=== PATIENT | male | born 1985 | race Two or more races ===

== ENCOUNTER 2016-11-02 16:43 | Emergency (ER) | payer MEDICAID ==
[~2016-11-02] VITALS: Ht 180.3 cm; Wt 81.6 kg
[~2016-11-02 16:43] MED LIST: DIAZ10TA OR; DIAZ5TAB3 PO; OXYB5TAB62 PO; PERCOT GT; PERCOT PO
[2016-11-02 17:09] VITALS: BP 108/77
[2016-11-02 21:35] LABS: Basophils # (auto) 0.1 uL; Basophils % (auto) 1.1 % (0.0-2.0); Eosinophils # (auto) 0.2 uL; Eosinophils % (auto) 1.4 % (0.0-7.0); Hematocrit 47.1 % (41.0-53.0); Hemoglobin 16.1 g/dL (13.5-17.5); Lymphocytes # (auto) 3.6 uL; Lymphocytes % (auto) 32.8 % (10.0-50.0); Mean Corpuscular Hemoglobin 31.8 pg (28.0-32.0); Mean Corpuscular Hgb Conc. 34.2 g/dL (32.0-36.0); Mean Platelet Volume 8.1 fL (6.9-10.8); Monocytes % (auto) 8.8 % (0.0-12.0); Neutrophils % (auto) 55.9 % (37.0-80.0); Platelet Count (auto) 492 10^3/uL (140-450); Red Cell Distribution Width 13.2 % (11.8-14.3); White Blood Cell 10.8 10^3/uL (4.4-10.8)
[2016-11-02 21:47] LABS: Urine Bilirubin Negative (Negative); Urine Blood Negative /uL (Negative); Urine Color Yellow (Yellow); Urine Glucose Normal (Normal); Urine Ketone TRACE (Negative); Urine Mucus FEW (None Seen); Urine Nitrite POSITIVE (Negative); Urine RBC 1 /hpf (0 - 3); Urine Squamous Epithelial Cell FEW /hpf (<5); Urine Urobilinogen Normal (Negative); Urine pH 6.5 (5.0-8.0)
[2016-11-02 21:51] LABS: Albumin 4.5 g/dL (3.4-5.0); BUN/Creatinine Ratio 14.3; Bilirubin, Total 0.5 mg/dL (0.2-1.0); Calcium 9.5 mg/dL (8.5-10.1); Potassium 3.4 mmol/L (3.5-5.1); Total Protein 9.4 g/dL (6.4-8.2)
[2016-11-02] MEDS ORDERED: cefTRIAXone SOD 1,000 MG VL IM ONE (22:00)
[2016-11-02] MEDS ORDERED: ONDANSETRON HCL 4 MG/2 ML VIAL IM ONE (22:15)
[2016-11-02] MEDS ORDERED: HYDROmorphone HCL 2 MG/ML VL IM ONE (22:15)
== END 2016-11-02 22:17 | disposition home or self-care (01) ==
LOC: ER 16:53
DX: N39.0 Urinary tract infection, site not specified (principal); G89.4 Chronic pain syndrome; K21.9 Gastro-esophageal reflux disease without esophagitis; Z87.442 Personal history of urinary calculi; Z79.899 Other long term (current) drug therapy; Z88.8 Allergy status to other drugs, medicaments and biological substances; Z87.440 Personal history of urinary (tract) infections
CPT/HCPCS: 36415; 74176; 80053; 81001; 85025; 96372; 99285; J0696; J1170; J2405

== ENCOUNTER 2017-02-24 14:38 | Emergency (ER) | payer MEDICAID ==
[~2017-02-24] VITALS: Ht 167.6 cm; Wt 81.6 kg
[2017-02-24 15:06] VITALS: BP 104/74
[2017-02-24] MEDS ORDERED: HYDROmorphone HCL 2 MG/ML VL IM ONE (15:45)
[2017-02-24] MEDS ORDERED: PROMETHAZINE HCL 25 MG/ML 1ML IM ONE (15:45)
[2017-02-24] MEDS ORDERED: ACETAMINOPHEN 500 MG TAB PO ONE (17:15)
[2017-02-24] MEDS ORDERED: cefTRIAXone SOD 1,000 MG VL IM ONE (17:15)
== END 2017-02-24 17:41 | disposition home or self-care (01) ==
LOC: EDBD 14:38 → ER 14:38
DX: G89.29 Other chronic pain (principal); M54.5 Low back pain; K59.00 Constipation, unspecified; K21.9 Gastro-esophageal reflux disease without esophagitis; R30.0 Dysuria; Z87.440 Personal history of urinary (tract) infections; Z87.442 Personal history of urinary calculi; Z88.8 Allergy status to other drugs, medicaments and biological substances
CPT/HCPCS: 72100; 96372; 99284; J0696; J1170; J2550

== ENCOUNTER 2017-10-26 11:47 | Inpatient (IN) | payer MEDICAID ==
[~2017-10-26] VITALS: Ht 177.8 cm; Wt 63.0 kg
[~2017-10-26 11:47] MED LIST changes: +OXYB5TAB24 PO; -OXYB5TAB62 PO
[2017-10-26 13:33] LABS: Eosinophils # (auto) 0 uL; Eosinophils % (auto) 0.2 % (0.0-7.0); Hemoglobin 14.8 g/dL (13.5-17.5); Lymphocytes # (auto) 1.3 uL; Monocytes # (auto) 0.4 uL; Red Cell Distribution Width 13.4 % (11.8-14.3); White Blood Cell 5.4 10^3/uL (4.4-10.8)
[2017-10-26 13:36] LABS: Basophils # (auto) 0.1 uL; Hematocrit 44.5 % (41.0-53.0); Lymphocytes % (auto) 24.9 % (10.0-50.0); Mean Corpuscular Hemoglobin 31.1 pg (28.0-32.0); Mean Corpuscular Hgb Conc. 33.3 g/dL (32.0-36.0); Mean Corpuscular Volume 93.4 fL (80.0-100.0); Monocytes % (auto) 7.6 % (0.0-12.0); Neutrophils # (auto) 3.6 uL; Neutrophils % (auto) 66.3 % (37.0-80.0); Nucleated Red Blood Cells % 0.1 %; Red Blood Cells 4.77 10^6/uL (4.5-5.90)
[2017-10-26 13:56] LABS: Albumin 3.6 g/dL (3.4-5.0); BUN/Creatinine Ratio 4.2; Bilirubin, Total 0.5 mg/dL (0.2-1.0); Calcium 9.6 mg/dL (8.5-10.1); Potassium 3.6 mmol/L (3.5-5.1); Total Protein 9.8 g/dL (6.4-8.2)
[2017-10-26 13:59] LABS: Platelet Count (auto) 542 10^3/uL (140-450)
[2017-10-26] MEDS ORDERED: HYDROmorphone HCL 2 MG/ML VL IM ONE (14:45)
[2017-10-26] MEDS ORDERED: ONDANSETRON HCL 4 MG/2 ML VIAL IM ONE (14:45)
[2017-10-26] MEDS ORDERED: MORPHINE SULF INJ 2 MG/ML SYRINGE 1ML IV PRN (19:00)
[2017-10-26] MEDS ORDERED: LORazepam 0.5 MG TAB PO PRN (19:00)
[2017-10-26] MEDS ORDERED: NITROGLYCERIN 0.4 MG SL TAB SL PRN (19:00)
[2017-10-26] MEDS ORDERED: cefTRIAXone 1GM/10ml IVPUSH 10 ML IV ONE (19:00)
[2017-10-26 19:01] LABS: Urine Amorphous Crystal FEW /hpf (None Seen); Urine Bacteria NONE SEEN /hpf (None Seen); Urine Blood Negative /uL (Negative); Urine Hyaline Cast FEW /lpf (0 - 2); Urine Mucus FEW (None Seen); Urine Specific Gravity 1.019 (1.001-1.035); Urine WBC 3 /hpf (0 - 3)
[2017-10-26] MEDS: SODIUM CHLORIDE 0.9% 1,000 ML IV SCH (20:38)
[2017-10-26] MEDS: MORPHINE SULF INJ 2 MG/ML SYRINGE 1ML IV PRN (21:19)
[2017-10-26] MEDS: DIAZEPAM 5 MG TAB PO SCH (21:20)
[2017-10-26] MEDS: OXYBUTYNIN CHL 5 MG TAB PO SCH (21:21)
[2017-10-26] MEDS: TEMAZEPAM 15 MG CAP PO PRN (21:27)
[2017-10-26] MEDS: HYDROcodone-ACET 5/325MG TAB PO PRN (21:42)
[2017-10-26] MEDS: ACETAMINOPHEN 500 MG TAB PO PRN (21:42)
[2017-10-26 22:00] VITALS: BP 105/69
[2017-10-26] MEDS ORDERED: DIAZEPAM 5 MG TAB PO SCH (22:00)
[2017-10-26 23:34] LABS: INR 0.99 (0.9-1.15); Prothrombin Time 10.6 sec (9.27-12.13)
[2017-10-27] MEDS: MORPHINE SULF INJ 2 MG/ML SYRINGE 1ML IV PRN ×6 (01:17→22:35)
[2017-10-27] MEDS: HYDROcodone-ACET 5/325MG TAB PO PRN ×2 (03:42→16:29)
[2017-10-27] MEDS: ACETAMINOPHEN 500 MG TAB PO PRN (03:43)
[2017-10-27] MEDS: SODIUM CHLORIDE 0.9% 1,000 ML IV SCH ×2 (04:56→12:00)
[2017-10-27 05:00] VITALS: BP 113/67
[2017-10-27 06:32] LABS: Potassium 3.3 mmol/L (3.5-5.1)
[2017-10-27 06:40] LABS: Albumin 3.4 g/dL (3.4-5.0); BUN/Creatinine Ratio 6.7; Calcium 9.4 mg/dL (8.5-10.1)
[2017-10-27 06:42] LABS: Bilirubin, Total 0.5 mg/dL (0.2-1.0); Total Protein 8.8 g/dL (6.4-8.2)
[2017-10-27 09:00] VITALS: BP 109/62
[2017-10-27] MEDS: ONDANSETRON HCL 4 MG/2 ML VIAL IV PRN ×3 (09:53→18:14)
[2017-10-27] MEDS: cefTRIAXone 1GM/10ml IVPUSH 10 ML IV SCH (09:53)
[2017-10-27] MEDS ORDERED: PANTOPRAZOLE 40 MG TAB PO SCH (10:00)
[2017-10-27] MEDS: OXYBUTYNIN CHL 5 MG TAB PO SCH ×2 (10:15→21:35)
[2017-10-27] MEDS: DIAZEPAM 5 MG TAB PO SCH ×2 (10:16→21:36)
[2017-10-27 13:00] VITALS: BP 98/56
[2017-10-27] MEDS: D5W/SOD CHL 0.45%/KCL 20MEQ 1,000 ML IV SCH (15:30)
[2017-10-27 17:00] VITALS: BP 102/68
[2017-10-27 22:00] VITALS: BP 101/55
[2017-10-28] MEDS: D5W/SOD CHL 0.45%/KCL 20MEQ 1,000 ML IV SCH ×3 (00:54→21:30)
[2017-10-28] MEDS: MORPHINE SULF INJ 2 MG/ML SYRINGE 1ML IV PRN ×4 (02:35→13:57)
[2017-10-28] MEDS: HYDROcodone-ACET 5/325MG TAB PO PRN ×2 (04:42→15:40)
[2017-10-28] MEDS: ACETAMINOPHEN 500 MG TAB PO PRN (04:44)
[2017-10-28 05:00] VITALS: BP 107/67
[2017-10-28 09:00] VITALS: BP 96/68
[2017-10-28] MEDS: DIAZEPAM 5 MG TAB PO SCH ×2 (10:23→22:14)
[2017-10-28] MEDS: cefTRIAXone 1GM/10ml IVPUSH 10 ML IV SCH (10:23)
[2017-10-28] MEDS: PANTOPRAZOLE 40 MG TAB PO SCH ×2 (10:23→22:14)
[2017-10-28] MEDS: OXYBUTYNIN CHL 5 MG TAB PO SCH ×2 (10:26→22:14)
[2017-10-28 13:00] VITALS: BP 94/54
[2017-10-28] MEDS ORDERED: GASTROGRAFIN 120 ML SOL ONE (16:39)
[2017-10-28 17:00] VITALS: BP 100/67
[2017-10-28] MEDS: MORPHINE SULFATE 4 MG/ML SYR/VIAL IV PRN ×2 (18:38→23:56)
[2017-10-28 22:00] VITALS: BP 101/71
[2017-10-28] MEDS: TEMAZEPAM 15 MG CAP PO PRN (22:14)
[2017-10-29] MEDS: HYDROcodone-ACET 5/325MG TAB PO PRN ×3 (02:49→17:01)
[2017-10-29] MEDS: MORPHINE SULFATE 4 MG/ML SYR/VIAL IV PRN ×5 (04:43→22:30)
[2017-10-29 04:55] VITALS: BP 118/75
[2017-10-29] MEDS: D5W/SOD CHL 0.45%/KCL 20MEQ 1,000 ML IV SCH (07:30)
[2017-10-29 08:42] VITALS: BP 102/66
[2017-10-29] MEDS: PANTOPRAZOLE 40 MG TAB PO SCH ×2 (09:46→21:47)
[2017-10-29] MEDS: OXYBUTYNIN CHL 5 MG TAB PO SCH ×2 (09:46→21:48)
[2017-10-29] MEDS: cefTRIAXone 1GM/10ml IVPUSH 10 ML IV SCH (09:46)
[2017-10-29] MEDS: DIAZEPAM 5 MG TAB PO SCH ×2 (09:46→21:47)
[2017-10-29 12:50] VITALS: BP 105/59
[2017-10-29] MEDS ORDERED: POTASSIUM CHL 20 Meq TABLET PO ONE ×3 (15:00→20:00)
[2017-10-29 16:17] LABS: BUN/Creatinine Ratio 4.2; Calcium 8.7 mg/dL (8.5-10.1)
[2017-10-29 16:19] LABS: Potassium 2.9 mmol/L (3.5-5.1)
[2017-10-29] MEDS: SOD CHL 0.45% WITH 20MEQ KCL 1,000 ML IV SCH (16:35)
[2017-10-29 16:38] VITALS: BP 114/63
[2017-10-29 21:43] VITALS: BP 91/55
[2017-10-29] MEDS: SODIUM BICARBONATE 650 MG TAB PO SCH (21:47)
[2017-10-29 22:27] VITALS: BP 130/71
[2017-10-29] MEDS: TEMAZEPAM 15 MG CAP PO PRN (22:55)
[2017-10-30] MEDS: SOD CHL 0.45% WITH 20MEQ KCL 1,000 ML IV SCH ×4 (00:30→23:05)
[2017-10-30] MEDS: MORPHINE SULFATE 4 MG/ML SYR/VIAL IV PRN ×5 (03:10→20:05)
[2017-10-30 04:10] VITALS: BP 110/67
[2017-10-30] MEDS: HYDROcodone-ACET 5/325MG TAB PO PRN ×3 (04:13→21:09)
[2017-10-30 05:33] VITALS: BP 120/68
[2017-10-30 06:39] LABS: Basophils # (auto) 0.1 uL; Basophils % (auto) 0.9 % (0.0-2.0); Eosinophils # (auto) 0.3 uL; Eosinophils % (auto) 3.3 % (0.0-7.0); Hematocrit 36.3 % (41.0-53.0); Hemoglobin 12.5 g/dL (13.5-17.5); Lymphocytes # (auto) 4.3 uL; Lymphocytes % (auto) 49.3 % (10.0-50.0); Mean Corpuscular Hemoglobin 31.6 pg (28.0-32.0); Mean Corpuscular Hgb Conc. 34.4 g/dL (32.0-36.0); Mean Corpuscular Volume 91.6 fL (80.0-100.0); Monocytes # (auto) 0.9 uL; Monocytes % (auto) 10.3 % (0.0-12.0); Neutrophils # (auto) 3.1 uL; Neutrophils % (auto) 36.2 % (37.0-80.0); Nucleated Red Blood Cells % 0.1 %; Platelet Count (auto) 564 10^3/uL (140-450); Red Blood Cells 3.97 10^6/uL (4.5-5.90); Red Cell Distribution Width 13.5 % (11.8-14.3); White Blood Cell 8.7 10^3/uL (4.4-10.8)
[2017-10-30 06:53] LABS: BUN/Creatinine Ratio 5.4; Calcium 8.7 mg/dL (8.5-10.1); Magnesium 1.9 mg/dL (1.6-2.6); Potassium 3.7 mmol/L (3.5-5.1)
[2017-10-30 09:00] VITALS: BP 124/79
[2017-10-30] MEDS: DIAZEPAM 5 MG TAB PO SCH ×2 (09:45→21:45)
[2017-10-30] MEDS: PANTOPRAZOLE 40 MG TAB PO SCH ×2 (09:45→21:45)
[2017-10-30] MEDS: SODIUM BICARBONATE 650 MG TAB PO SCH ×2 (09:46→21:45)
[2017-10-30] MEDS: OXYBUTYNIN CHL 5 MG TAB PO SCH ×2 (09:46→21:45)
[2017-10-30] MEDS: cefTRIAXone 1GM/10ml IVPUSH 10 ML IV SCH (09:48)
[2017-10-30 17:00] VITALS: BP 102/64
[2017-10-30 21:51] VITALS: BP 101/68
[2017-10-30] MEDS: TEMAZEPAM 15 MG CAP PO PRN (22:51)
[2017-10-31] MEDS: MORPHINE SULFATE 4 MG/ML SYR/VIAL IV PRN ×3 (00:09→08:27)
[2017-10-31] MEDS: SOD CHL 0.45% WITH 20MEQ KCL 1,000 ML IV SCH (04:09)
[2017-10-31 04:59] VITALS: BP 118/74
[2017-10-31] MEDS: HYDROcodone-ACET 5/325MG TAB PO PRN (05:20)
[2017-10-31 06:21] LABS: Basophils # (auto) 0.1 uL; Hemoglobin 12.3 g/dL (13.5-17.5); Lymphocytes # (auto) 4.3 uL; Mean Corpuscular Volume 91.4 fL (80.0-100.0); Monocytes # (auto) 1.1 uL; Neutrophils % (auto) 39.6 % (37.0-80.0)
[2017-10-31 06:25] LABS: Basophils % (auto) 1.1 % (0.0-2.0); Eosinophils # (auto) 0.3 uL; Eosinophils % (auto) 3.5 % (0.0-7.0); Hematocrit 35.5 % (41.0-53.0); Lymphocytes % (auto) 44.8 % (10.0-50.0); Mean Corpuscular Hemoglobin 31.8 pg (28.0-32.0); Mean Corpuscular Hgb Conc. 34.8 g/dL (32.0-36.0); Neutrophils # (auto) 3.8 uL; Nucleated Red Blood Cells % 0.2 %; Platelet Count (auto) 555 10^3/uL (140-450); Red Blood Cells 3.88 10^6/uL (4.5-5.90); Red Cell Distribution Width 13.6 % (11.8-14.3); White Blood Cell 9.7 10^3/uL (4.4-10.8)
[2017-10-31 06:36] LABS: BUN/Creatinine Ratio 18.9; Calcium 8.4 mg/dL (8.5-10.1); Potassium 3.6 mmol/L (3.5-5.1)
[2017-10-31 08:20] VITALS: BP 110/56
[2017-10-31] MEDS ORDERED: HYDROcodone-ACET 5/325MG TAB PO PRN (09:00)
[2017-10-31] MEDS ORDERED: PANT40T PO (09:10)
[2017-10-31] MEDS ORDERED: AMOXICILLIN/CLAVUL 875 MG TAB PO ONE (09:15)
[2017-10-31] MEDS ORDERED: AMOX-263 PO (09:27)
[2017-10-31] MEDS ORDERED: LACT10SO3 PO (09:27)
[2017-10-31 09:29] VITALS: BP 110/56
[2017-10-31] MEDS: PANTOPRAZOLE 40 MG TAB PO SCH (10:05)
[2017-10-31] MEDS: OXYBUTYNIN CHL 5 MG TAB PO SCH (10:06)
[2017-10-31] MEDS: DIAZEPAM 5 MG TAB PO SCH (10:06)
[2017-10-31 10:48] VITALS: BP 94/58
[2017-10-31 11:35] VITALS: BP 123/68
== END 2017-10-31 11:50 | disposition home or self-care (01) ==
LOC: ER 11:47 → EDUNIT# 11:47 → TELE 11:48 → TELE-WESTW 21:51
PROVIDERS: ADMIT Internal Medicine; ATTEND Internal Medicine
PROC: CF1C1ZZ Planar Nuclear Medicine Imaging of Hepatobiliary System, All using Technetium 99m (Tc-99m) (ICD-10-PCS; principal; 2017-10-31)
DX: K80.20 Calculus of gallbladder without cholecystitis without obstruction (principal); K56.690 Other partial intestinal obstruction; E87.2 Acidosis; G82.20 Paraplegia, unspecified; G89.4 Chronic pain syndrome; N36.5 Urethral false passage; K21.9 Gastro-esophageal reflux disease without esophagitis; E87.6 Hypokalemia; N39.0 Urinary tract infection, site not specified; N35.9 Urethral stricture, unspecified; Z82.49 Family history of ischemic heart disease and other diseases of the circulatory system; Z83.3 Family history of diabetes mellitus; Z87.442 Personal history of urinary calculi; Z90.81 Acquired absence of spleen; Z88.6 Allergy status to analgesic agent; Z88.8 Allergy status to other drugs, medicaments and biological substances
CPT/HCPCS: 36415; 51702; 74176; 74250; 76705; 78226; 80048; 80053; 81001; 82150; 83605; 83690; 83735; 85025; 85610; 85652; 87086; 96361; 96372; 96374; J0696; J2405

== ENCOUNTER 2018-03-26 06:29 | Inpatient (IN) | payer MEDICAID ==
[~2018-03-26] VITALS: Ht 180.3 cm; Wt 62.0 kg
[~2018-03-26 06:29] MED LIST changes: -DIAZ5TAB3 PO; +LACT10SO3 PO; +METH-532 PO; -OXYB5TAB24 PO; +PANT40T PO; -PERCOT GT; +PREG150C PO; +ROPI1TAB PO; +ZOLP10TA PO
[2018-03-26 07:40] LABS: Hemoglobin 14.5 g/dL (13.5-17.5); Mean Corpuscular Volume 91.1 fL (80.0-100.0)
[2018-03-26 07:41] LABS: Hematocrit 43.7 % (41.0-53.0); Mean Corpuscular Hemoglobin 30.2 pg (28.0-32.0); Mean Corpuscular Hgb Conc. 33.1 g/dL (32.0-36.0); Platelet Count (auto) 500 10^3/uL (140-450); Red Blood Cells 4.79 10^6/uL (4.5-5.90); Red Cell Distribution Width 14.8 % (11.8-14.3)
[2018-03-26 08:08] LABS: Basophils % (manual) 0 (0.0-2.0); Blast Cells 0; Eosinophils % (manual) 0 (0-7); Myelocytes % 0; Promyelocytes % 0; Reactive Lymphocytes 0
[2018-03-26] MEDS ORDERED: SODIUM CHLORIDE 0.9% 1,000 ML IV ONE (10:26)
[2018-03-26] MEDS ORDERED: HYDROmorphone HCL 2 MG/ML VL IV ONE ×3 (10:30→18:30)
[2018-03-26 11:05] LABS: Albumin 3.9 g/dL (3.4-5.0); BUN/Creatinine Ratio 29.2; Calcium 9.4 mg/dL (8.5-10.1); Magnesium 2.3 mg/dL (1.6-2.6); Potassium 3.1 mmol/L (3.5-5.1)
[2018-03-26 11:08] LABS: Total Protein 8.6 g/dL (6.4-8.2)
[2018-03-26] MEDS: PROMETHAZINE HCL 25 MG/ML 1ML IV PRN ×2 (12:13→15:46)
[2018-03-26 12:14] LABS: Band Neutrophils % (manual) 8; Lymphocytes % (manual) 2 (10.0-50.0); Metamyelocytes % 2; Monocytes % (manual) 7 (0-12)
[2018-03-26] MEDS ORDERED: cefTRIAXone 1GM/50ML D5W 50 ML IV ONE ×2 (15:15→18:15)
[2018-03-26] MEDS ORDERED: POTASSIUM EFFERVESENT TAB 25 MEQ PO ONE ×2 (17:30→18:15)
[2018-03-26] MEDS ORDERED: NITROGLYCERIN 0.4 MG SL TAB SL PRN (18:15)
[2018-03-26] MEDS ORDERED: ACETAMINOPHEN 500 MG TAB PO PRN (18:15)
[2018-03-26] MEDS ORDERED: MORPHINE SULFATE 4 MG/ML SYR/VIAL IV PRN ×2 (18:15)
[2018-03-26] MEDS ORDERED: PROMETHAZINE HCL 25 MG/ML 1ML IV PRN (18:15)
[2018-03-26] MEDS: SODIUM CHLORIDE 0.9% 1,000 ML IV SCH (20:07)
[2018-03-26] MEDS ORDERED: PNEUMOCOCCAL VACC POLYS 25 MCG/0.5 ML VIAL IM SCH (20:15)
[2018-03-26 20:44] LABS: Urine Bacteria NONE SEEN /hpf (None Seen); Urine Blood 3+ /uL (Negative); Urine WBC 1210 /hpf (0 - 3); Urine WBC Clumps PRESENT /hpf (None Seen)
--- NOTE | 2018-03-26 20:50 | NUR ---
[facility] admit from [facility] admitted to [facility]. Patient oriented to DONTE AYERS RN primary RN, unit, room, bed, and unit policies regarding patient care and visiting hours. Patient weighed by bedscale and encouraged to call if they need something. All questions and concerns addressed, patient verbalized understanding.
[2018-03-26 20:52] LABS: Urine Specific Gravity 1.023 (1.001-1.035)
[2018-03-26 21:00] VITALS: BP 122/57
[2018-03-26] MEDS ORDERED: PATIENTS OWN MEDICATION (Pregabalin (Lyrica) 1 CAP) PO SCH (22:00)
[2018-03-26] MEDS: LACTULOSE 20Gm/30ML SOLN PO SCH (22:00)
[2018-03-26] MEDS ORDERED: LACTULOSE 20 GM PO SCH (22:00)
[2018-03-26] MEDS ORDERED: METHOCARBAMOL PO SCH (22:00)
[2018-03-26] MEDS ORDERED: DIAZEPAM 10 MG OR SCH (22:00)
[2018-03-26 22:53] LABS: INR 1.04 (0.9-1.15); Prothrombin Time 11.1 sec (9.27-12.13)
--- NOTE | 2018-03-26 23:00 | NUR ---
Hospitalist Called/paged Regarding current prescribed Morphine 2mg not proving pain relief as verbalized by the patient. Facial grimacing and guarding noted. Waiting for call back. Continue care.
[2018-03-26] MEDS: PREGABALIN CAPSULE 75 MG CAP PO SCH (23:01)
[2018-03-26] MEDS: FAMOTIDINE 20 MG TAB PO SCH (23:01)
[2018-03-26] MEDS: METHOCARBAMOL 500 MG TAB PO SCH (23:01)
[2018-03-26] MEDS: DIAZEPAM 5 MG TAB PO SCH (23:02)
[2018-03-26] MEDS: OXYCODONE W/ ACETAMINOPHEN 5/325MG TABLET PO PRN (23:03)
--- NOTE | 2018-03-27 01:02 | NUR ---
Hospitalist returned call Verena Camejo ASSISTANT PROFESSOR OF MARINE BIOLOGY returned call, updated on patient status and reason for call, orders received. Dilaudid 1mg once then Dilaudid 0.5 mg q4h. Continue care.
[2018-03-27] MEDS ORDERED: HYDROmorphone HCL 2 MG/ML VL IV PRN (01:30)
[2018-03-27] MEDS ORDERED: HYDROmorphone HCL 2 MG/ML VL IV ONE (01:30)
--- NOTE | 2018-03-27 03:01 | NUR ---
Rounds Patient in bed asleep with no signs of distress/sob/pain. Will continue to monitor.
[2018-03-27 04:33] VITALS: BP 92/59
[2018-03-27] MEDS: SODIUM CHLORIDE 0.9% 1,000 ML IV SCH ×2 (06:02→17:00)
[2018-03-27 06:03] LABS: Basophils # (auto) 0.1 uL; Eosinophils # (auto) 0.3 uL; Eosinophils % (auto) 1.9 % (0.0-7.0); Hematocrit 36.5 % (41.0-53.0); Hemoglobin 12.2 g/dL (13.5-17.5); Lymphocytes # (auto) 3.9 uL; Lymphocytes % (auto) 29.9 % (10.0-50.0); Mean Corpuscular Hemoglobin 30.1 pg (28.0-32.0); Mean Corpuscular Hgb Conc. 33.4 g/dL (32.0-36.0); Mean Corpuscular Volume 89.9 fL (80.0-100.0); Monocytes # (auto) 1.2 uL; Monocytes % (auto) 9.2 % (0.0-12.0); Neutrophils # (auto) 7.6 uL; Nucleated Red Blood Cells % 0.1 %; Platelet Count (auto) 489 10^3/uL (140-450); Red Blood Cells 4.06 10^6/uL (4.5-5.90); Red Cell Distribution Width 14.6 % (11.8-14.3); White Blood Cell 13.1 10^3/uL (4.4-10.8)
[2018-03-27 06:17] LABS: Albumin 2.9 g/dL (3.4-5.0); Calcium 8.1 mg/dL (8.5-10.1); Potassium 3.6 mmol/L (3.5-5.1)
[2018-03-27 06:21] LABS: BUN/Creatinine Ratio 29.9; Bilirubin, Total 0.8 mg/dL (0.2-1.0); Total Protein 6.6 g/dL (6.4-8.2)
[2018-03-27] MEDS: PREGABALIN CAPSULE 75 MG CAP PO SCH ×3 (06:25→21:04)
[2018-03-27] MEDS: METHOCARBAMOL 500 MG TAB PO SCH ×3 (06:25→21:03)
--- NOTE | 2018-03-27 07:15 | NUR ---
Opening Shift Note Assumed care of patient, awake and alert. No S/S of distress/SOB or pain. Instructed on POC and to call for assist PRN, will continue to monitor for changes Q1hr and PRN.
--- NOTE | 2018-03-27 07:35 | NUR ---
Endorsed care to day shift MARC Newell.
[2018-03-27] MEDS: DIAZEPAM 5 MG TAB PO SCH ×2 (08:15→21:02)
[2018-03-27] MEDS: FAMOTIDINE 20 MG TAB PO SCH ×2 (08:16→21:02)
[2018-03-27] MEDS: LACTULOSE 20Gm/30ML SOLN PO SCH ×2 (08:16→21:04)
[2018-03-27] MEDS: OXYCODONE W/ ACETAMINOPHEN 5/325MG TABLET PO PRN (08:16)
[2018-03-27] MEDS: cefTRIAXone 1GM/50ML D5W 50 ML IV SCH (08:16)
--- NOTE | 2018-03-27 08:45 | NUR ---
DR MCKENZIE NEW ORDER FOR CYSTOSCOPY 03/30/18
[2018-03-27 09:00] VITALS: BP 100/59
[2018-03-27] MEDS: PANTOPRAZOLE 40 MG TAB PO SCH (10:00)
[2018-03-27] MEDS: HYDROmorphone HCL 2 MG/ML VL IV PRN ×3 (13:17→21:00)
[2018-03-27 13:18] VITALS: BP 114/74
[2018-03-27] MEDS: ZOLPIDEM TARTRATE 5 MG TAB PO SCH (17:00)
[2018-03-27 17:31] VITALS: BP 99/58
[2018-03-27] MEDS: ROPINIROLE 1 MG TABLET PO SCH (18:00)
[2018-03-27] MEDS ORDERED: PATIENTS OWN MEDICATION (Zolpidem Tartrate (Ambien) 1 TAB) PO SCH (18:00)
[2018-03-27] MEDS ORDERED: ROPINIROLE HYDROCHLORIDE PO SCH (18:00)
--- NOTE | 2018-03-27 19:30 | NUR ---
PM ASSESSMENT PT AWAKE, A/OX4, AFEBRILE. PT C/O PAIN 08/16, WILL GIVE PAIN MED. NO SOB OR DISTRESS. IVF INFUSING, IV ON RT WRIST 22G, INTACT AND PATENT. FERNANDES CATHETER DRAINING VIA GRAVITY YELLOW URINE W/ SOME SEDIMENT. POC DISCUSSED, PT STATED UNDERSTANDING. SAFETY PRECAUTIONS IN PLACE. WILL CONTINUE TO MONITOR.
[2018-03-27 22:00] VITALS: BP 92/48
[2018-03-28] VITALS (8 sets, daily range): BP systolic 84–139; BP diastolic 61–84
[2018-03-28] MEDS: SODIUM CHLORIDE 0.9% 1,000 ML IV SCH ×2 (00:14→11:30)
--- NOTE | 2018-03-28 01:00 | NUR ---
FERNANDES CATHETER PT COMPLAINING OF FULL BLADDER, PALPATED BLADDER SOME FIRMNESS FELT. CHECKED BALLOON AMT: 10ML. FLUSHED 30ML, 80ML+ DRAINED OUT. PT STILL CONTINUE TO C/O FULL BLADDER, FERNANDES CATHETER REMOVED AND REINSERTED NEW FERNANDES, PT TOLERATED WELL. FLUSHED 40ML, DRAINED 100ML, PT STATED SOME RELIEF. CHECKED BLADDER AMT W/ BLADDER SCANNER, 0ML URINE REPORTED. SAFETY PRECAUTIONS IN PLACE. WILL CONTINUE TO MONITOR.
[2018-03-28] MEDS: HYDROmorphone HCL 2 MG/ML VL IV PRN ×6 (01:05→21:29)
[2018-03-28] MEDS: OXYCODONE W/ ACETAMINOPHEN 5/325MG TABLET PO PRN ×3 (01:50→22:56)
[2018-03-28] MEDS: METHOCARBAMOL 500 MG TAB PO SCH ×3 (05:04→21:27)
[2018-03-28] MEDS: PREGABALIN CAPSULE 75 MG CAP PO SCH ×3 (05:04→21:27)
[2018-03-28 06:21] LABS: Basophils # (auto) 0.2 uL; Hemoglobin 11.9 g/dL (13.5-17.5); Red Cell Distribution Width 14.8 % (11.8-14.3)
[2018-03-28 06:28] LABS: Basophils % (auto) 1.6 % (0.0-2.0); Eosinophils # (auto) 0.5 uL; Eosinophils % (auto) 4.1 % (0.0-7.0); Hematocrit 35.7 % (41.0-53.0); Lymphocytes # (auto) 4.3 uL; Lymphocytes % (auto) 38.3 % (10.0-50.0); Mean Corpuscular Hemoglobin 30.3 pg (28.0-32.0); Mean Corpuscular Hgb Conc. 33.3 g/dL (32.0-36.0); Mean Corpuscular Volume 91.1 fL (80.0-100.0); Monocytes # (auto) 1.3 uL; Monocytes % (auto) 11.5 % (0.0-12.0); Neutrophils % (auto) 44.5 % (37.0-80.0); Platelet Count (auto) 488 10^3/uL (140-450); Red Blood Cells 3.92 10^6/uL (4.5-5.90); White Blood Cell 11.3 10^3/uL (4.4-10.8)
[2018-03-28 06:31] LABS: Potassium 3.7 mmol/L (3.5-5.1)
[2018-03-28 06:38] LABS: Albumin 2.7 g/dL (3.4-5.0); BUN/Creatinine Ratio 27.7; Bilirubin, Total 0.5 mg/dL (0.2-1.0); Calcium 8.2 mg/dL (8.5-10.1); Total Protein 6.4 g/dL (6.4-8.2)
--- NOTE | 2018-03-28 06:41 | NUR ---
FERNANDES CATHETER DRAINING WELL AND W/ ADEQUATE URINE, TOTAL OUTPUT DURING SHIFT 1350ML. SAFETY PRECAUTIONS IN PLACE. WILL CONTINUE TO MONITOR.
--- NOTE | 2018-03-28 07:40 | NUR ---
Opening Shift Note Assumed care of patient, awake, alert, and oriented x4. Patient has 8/10 complaints of bladder pain at this time and is requesting Dilaudid when it is due. Patient has IV to right wrist 22g running NS at 100mL/hr, patient tolerating well. Patient is on room air with no S/S of distress/SOB. Patient has a meneses patent and draining clear yellow urine. Instructed on POC and to call for assist PRN, will continue to monitor for changes Q1hr and PRN. Bed in lowest locked position, call light within reach.
[2018-03-28] MEDS: cefTRIAXone 1GM/50ML D5W 50 ML IV SCH (08:16)
[2018-03-28] MEDS: LACTULOSE 20Gm/30ML SOLN PO SCH ×3 (09:18→22:00)
[2018-03-28] MEDS: FAMOTIDINE 20 MG TAB PO SCH ×2 (09:18→21:28)
[2018-03-28] MEDS: DIAZEPAM 5 MG TAB PO SCH ×2 (09:18→21:27)
[2018-03-28] MEDS: PANTOPRAZOLE 40 MG TAB PO SCH (09:19)
--- NOTE | 2018-03-28 09:45 | NUR ---
MICRO RECEIVED CALL FROM MICROBIOLOGY STATING PATIENT IS POSITIVE FOR MRSA IN NARES. PATIENT PLACED ON CONTACT PRECAUTIONS, BIODIESEL ENGINE SPECIALIST MADE AWARE.
--- NOTE | 2018-03-28 10:23 | NUR ---
IMODIUM PATIENT REQUESTING IMODIUM FOR DIARRHEA. PER DR. HANLEY, PATIENT TO GET IMODIUM 2MG PO Q6H PRN FOR 2 DAYS. ORDERS READ BACK AND VERIFIED.
[2018-03-28] MEDS: LOPERAMIDE HCL 2 MG CAP PO PRN (11:31)
--- NOTE | 2018-03-28 16:42 | NUR ---
RIGHT LEG PATIENT COMPLAINING OF PAIN IN RIGHT LEG AND THAT IT IS WARM. 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 HE STATES HE FEELS IT IS SWOLLEN. NO SWELLING/REDNESS/HEAT NOTED. DR. HANLEY MADE AWARE. PER MD, PATIENT TO GET VENOUS US TO RIGHT LEG. ORDERS READ BACK AND VERIFIED.
[2018-03-28] MEDS: ZOLPIDEM TARTRATE 5 MG TAB PO SCH (17:29)
[2018-03-28] MEDS: ROPINIROLE 1 MG TABLET PO SCH (17:32)
--- NOTE | 2018-03-28 18:09 | NUR ---
FERNANDES FLUSHED FERNANDES DRAINING CLEAR YELLOW URINE. FERNANDES CATHETER FLUSHED WITH 30CC NORMAL SALINE PER PATIENT REQUEST. FERNANDES CONTINUES TO DRAIN CLEAR YELLOW URINE.
--- NOTE | 2018-03-28 18:36 | NUR ---
END OF SHIFT PATIENT RESTING IN BED. NO S/S OF DISTRESS. INSTRUCTED PATIENT TO CALL PRN. BED IN LOWEST LOCKED POSITION, CALL LIGHT WITHIN REACH. ENDORSED CARE TO MARC HERNANDEZ.
--- NOTE | 2018-03-28 19:45 | NUR ---
Opening Shift Note Assumed care of patient, awake and alert and in pain. No S/S of distress/SOB. Green patent and draining to clear yellow urine. Updated on POC and to call for assist PRN, patient verbalized understanding, call light within reach, will continue to monitor for changes Q1hr and PRN.
[2018-03-29] MEDS: SODIUM CHLORIDE 0.9% 1,000 ML IV SCH ×2 (00:37→10:00)
[2018-03-29] MEDS: HYDROmorphone HCL 2 MG/ML VL IV PRN ×6 (01:27→22:26)
[2018-03-29 05:00] VITALS: BP 92/57
[2018-03-29] MEDS: PREGABALIN CAPSULE 75 MG CAP PO SCH ×3 (05:31→21:46)
[2018-03-29] MEDS: METHOCARBAMOL 500 MG TAB PO SCH ×3 (05:32→21:46)
[2018-03-29 06:05] LABS: Eosinophils # (auto) 0.4 uL; Neutrophils % (auto) 45.1 % (37.0-80.0); Nucleated Red Blood Cells % 0.1 %
[2018-03-29 06:08] LABS: Basophils # (auto) 0.2 uL; Eosinophils % (auto) 3.7 % (0.0-7.0); Hematocrit 36.8 % (41.0-53.0); Hemoglobin 12.5 g/dL (13.5-17.5); Lymphocytes % (auto) 37.2 % (10.0-50.0); Mean Corpuscular Hemoglobin 30.8 pg (28.0-32.0); Mean Corpuscular Hgb Conc. 33.9 g/dL (32.0-36.0); Mean Corpuscular Volume 90.8 fL (80.0-100.0); Monocytes # (auto) 1.3 uL; Neutrophils # (auto) 4.8 uL; Platelet Count (auto) 549 10^3/uL (140-450); Red Blood Cells 4.05 10^6/uL (4.5-5.90); White Blood Cell 10.7 10^3/uL (4.4-10.8)
[2018-03-29 06:11] LABS: Albumin 2.7 g/dL (3.4-5.0); BUN/Creatinine Ratio 23.2; Potassium 4.1 mmol/L (3.5-5.1)
[2018-03-29 06:14] LABS: Bilirubin, Total 0.3 mg/dL (0.2-1.0)
--- NOTE | 2018-03-29 07:45 | NUR ---
OPENING SHIFT NOTE ASSUMED CARE OF PATIENT. PATIENT AWAKE AND ALERT SITTING UP IN BED. NO S/S OF DISTRESS OR SOB NOTED. BED IN LOWEST LOCKED POSITION, CALL LIGHT WITHIN REACH. REVIEWED POC WITH PATIENT AND INSTRUCTED TO CALL FOR ASSIST NEEDED. WILL CONTINUE TO MONITOR.
[2018-03-29 08:00] VITALS: BP 99/56
[2018-03-29] MEDS: cefTRIAXone 1GM/50ML D5W 50 ML IV SCH (08:45)
[2018-03-29] MEDS: OXYCODONE W/ ACETAMINOPHEN 5/325MG TABLET PO PRN ×2 (08:52→20:40)
[2018-03-29] MEDS: LACTULOSE 20Gm/30ML SOLN PO SCH ×2 (10:00→21:47)
[2018-03-29] MEDS: PANTOPRAZOLE 40 MG TAB PO SCH (10:00)
[2018-03-29] MEDS: DIAZEPAM 5 MG TAB PO SCH ×2 (11:30→22:26)
[2018-03-29] MEDS: FAMOTIDINE 20 MG TAB PO SCH ×2 (11:30→21:47)
[2018-03-29 12:52] VITALS: BP 96/52
[2018-03-29 17:00] VITALS: BP 100/60
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
[2018-03-29] MEDS: ROPINIROLE 1 MG TABLET PO SCH (18:00)
--- NOTE | 2018-03-29 18:45 | NUR ---
END OF SHIFT NOTE PATIENT AWAKE AND ALERT SITTING UP IN BED. NO S/S OF DISTRESS OR SOB NOTED. BED IN LOWEST LOCKED POSITION, CALL LIGHT WITHIN REACH. WILL ENDORSE CARE TO NOC RN.
[2018-03-29] MEDS: LOPERAMIDE HCL 2 MG CAP PO PRN (19:04)
[2018-03-29] MEDS: ZOLPIDEM TARTRATE 5 MG TAB PO SCH (21:51)
[2018-03-29 22:00] VITALS: BP 108/58
[2018-03-30] MEDS: HYDROmorphone HCL 2 MG/ML VL IV PRN ×5 (02:28→22:18)
[2018-03-30] MEDS: SODIUM CHLORIDE 0.9% 1,000 ML IV SCH ×3 (02:41→22:24)
[2018-03-30 04:38] LABS: Basophils # (auto) 0.1 uL; Basophils % (auto) 1.6 % (0.0-2.0); Eosinophils # (auto) 0.3 uL; Eosinophils % (auto) 3.8 % (0.0-7.0); Hematocrit 34.9 % (41.0-53.0); Hemoglobin 11.7 g/dL (13.5-17.5); Lymphocytes # (auto) 3.4 uL; Lymphocytes % (auto) 38.2 % (10.0-50.0); Mean Corpuscular Hemoglobin 30.1 pg (28.0-32.0); Mean Corpuscular Hgb Conc. 33.6 g/dL (32.0-36.0); Mean Corpuscular Volume 89.7 fL (80.0-100.0); Monocytes # (auto) 1.2 uL; Monocytes % (auto) 13.9 % (0.0-12.0); Neutrophils # (auto) 3.8 uL; Neutrophils % (auto) 42.5 % (37.0-80.0); Nucleated Red Blood Cells % 0.1 %; Platelet Count (auto) 570 10^3/uL (140-450); Red Blood Cells 3.89 10^6/uL (4.5-5.90); Red Cell Distribution Width 14.4 % (11.8-14.3)
[2018-03-30 04:54] LABS: BUN/Creatinine Ratio 22.2; Calcium 8.6 mg/dL (8.5-10.1); Potassium 3.8 mmol/L (3.5-5.1)
[2018-03-30 05:13] VITALS: BP 100/61
[2018-03-30] MEDS: PREGABALIN CAPSULE 75 MG CAP PO SCH ×3 (06:05→22:15)
[2018-03-30] MEDS: METHOCARBAMOL 500 MG TAB PO SCH ×3 (06:05→22:17)
--- NOTE | 2018-03-30 07:40 | NUR ---
OPENING SHIFT NOTE ASSUMED CARE OF PATIENT. PATIENT AWAKE AND ALERT SITTING UP IN BED. NO S/S OF DISTRESS OR SOB NOTED. BED IN LOWEST LOCKED POSITION, CALL LIGHT WITHIN REACH. REVIEWED POC AND INSTRUCTED NPO UNTIL AFTER PROCEDURE. WILL CONTINUE TO MONITOR.
[2018-03-30 08:30] VITALS: BP 91/67
[2018-03-30] MEDS: cefTRIAXone 1GM/50ML D5W 50 ML IV SCH (09:27)
[2018-03-30] MEDS: DIAZEPAM 5 MG TAB PO SCH ×2 (09:28→22:15)
[2018-03-30] MEDS: FAMOTIDINE 20 MG TAB PO SCH ×2 (09:28→22:16)
[2018-03-30] MEDS: LACTULOSE 20Gm/30ML SOLN PO SCH ×2 (09:28→22:00)
[2018-03-30] MEDS: PANTOPRAZOLE 40 MG TAB PO SCH (09:28)
[2018-03-30] MEDS ORDERED: VANCOMYCIN PER PHARMACY 0 MG IV SCH (09:30)
[2018-03-30] MEDS: VANCOMYCIN 1GM/250ML 250 ML IV SCH ×2 (10:30→22:14)
[2018-03-30 11:51] LABS: INR 0.91 (0.9-1.15); Partial Thromboplastin Time 20.5 sec (23.78-33.04); Prothrombin Time 9.8 sec (9.27-12.13)
[2018-03-30] MEDS: OXYCODONE W/ ACETAMINOPHEN 5/325MG TABLET PO PRN ×2 (11:57→20:49)
[2018-03-30 12:00] VITALS: BP 95/52
--- NOTE | 2018-03-30 12:39 | NUR ---
NUTRITION ASSESSMENT NOTES Please refer to link notes of nutrition screen form filed under the intervention section of the plan of care for further details. Est. Needs: 1950 kcal to 2300 kcal (30-35 kcal/kgBW), 65 gms to 78 gms pro (1.0-1.2 gms/kgBW). Will continue to monitor pertinent labs and reassess nutrient need prn Thank you. Addendum: 03/30/18 at [address] Amended: Links added.
[2018-03-30] MEDS ORDERED: ceFAZolin 1GM/50ML 50 ML IV ONE (14:30)
[2018-03-30] MEDS ORDERED: MIDAZOLAM HCL 1MG/1ML-2 ML VIAL ONE (15:49)
[2018-03-30] MEDS ORDERED: fentaNYL CITRATE 100 MCG/2 ML VL ONE ×2 (15:49→16:35)
[2018-03-30] MEDS ORDERED: PROPOFOL 10 MG/ML 20 ML IV ONE ×2 (15:50→16:07)
[2018-03-30] MEDS ORDERED: SODIUM CHLORIDE LOCK 10 ML ONE (16:07)
[2018-03-30] MEDS ORDERED: METOCLOPRAMIDE HCL 5MG/ml INJ 2ml VIAL IV ONE (16:45)
[2018-03-30 17:00] VITALS: BP 101/55
[2018-03-30] MEDS ORDERED: fentaNYL CITRATE 100 MCG/2 ML VL IV ONE (17:00)
--- NOTE | 2018-03-30 17:05 | NUR ---
PATIENT RETURNED TO UNIT. PATIENT RETURNED TO UNIT AT THIS TIME. NO S/S OF DISTRESS OR SOB NOTED. BED IN LOWEST LOCKED POSITION, CALL LIGHT WITHIN REACH. CONTINUING TO MONITOR.
[2018-03-30] MEDS: ROPINIROLE 1 MG TABLET PO SCH (17:13)
--- NOTE | 2018-03-30 19:00 | NUR ---
ASSUMED PATIENT CARE- NOC SHIFT PATIENT IS ALERT AND ORIENTED X4, ANSWERS IN COMPLETE SENTENCES AND MAKES APPROPRIATE EYE CONTACT. PATIENT IS LOWER LIMBS PARAPLEGIC; STRENGTH TO UPPER LIMBS IS NORMAL AND PATIENT IS ABLE TO FEED HIMSELF AND PREFORM UPPER CARE INDEPENDENTLY. PATIENT IS IN BED, BED IS LOCKED AT LOWEST POSITION, BED RAILS UP X2 AND HEAD OF BED IS UP >30 DEGREES FOR SAFETY PRECAUTIONS. BEDSIDE TABLE WITHIN REACH, CALL LIGHT WITHIN REACH. DISCUSSED POC WITH PATIENT AND INSTRUCTED PATIENT TO CALL PRN; PATIENT VERBALIZED UNDERSTANDING. WILL CONTINUE TO MONITOR Q1H AND PRN.
--- NOTE | 2018-03-30 19:03 | NUR ---
END OF SHIFT NOTE PATIENT AWAKE AND ALERT SITTING UP IN BED. NO S/S OF DISTRESS OR SOB NOTED. BED IN LOWEST LOCKED POSITION, CALL LIGHT WITHIN REACH. CARE ENDORSED TO NOC RN.
[2018-03-30 22:00] VITALS: BP 107/63
[2018-03-30] MEDS: ZOLPIDEM TARTRATE 5 MG TAB PO SCH (22:16)
[2018-03-31] MEDS: HYDROmorphone HCL 2 MG/ML VL IV PRN ×4 (03:37→20:36)
[2018-03-31 05:02] VITALS: BP 98/54
[2018-03-31 05:25] LABS: Hemoglobin 11.6 g/dL (13.5-17.5); Lymphocytes # (auto) 3.8 uL
[2018-03-31 05:27] LABS: Basophils # (auto) 0.1 uL; Basophils % (auto) 1.2 % (0.0-2.0); Eosinophils # (auto) 0.4 uL; Lymphocytes % (auto) 41.8 % (10.0-50.0); Mean Corpuscular Hemoglobin 30.3 pg (28.0-32.0); Mean Corpuscular Volume 91.7 fL (80.0-100.0); Monocytes % (auto) 10.7 % (0.0-12.0); Neutrophils # (auto) 3.9 uL; Neutrophils % (auto) 42.3 % (37.0-80.0); Nucleated Red Blood Cells % 0.1 %; Platelet Count (auto) 589 10^3/uL (140-450); Red Blood Cells 3.82 10^6/uL (4.5-5.90); Red Cell Distribution Width 14.6 % (11.8-14.3); White Blood Cell 9.1 10^3/uL (4.4-10.8)
[2018-03-31 05:33] LABS: Albumin 2.7 g/dL (3.4-5.0); Calcium 8.2 mg/dL (8.5-10.1)
[2018-03-31 05:34] LABS: BUN/Creatinine Ratio 24.5
[2018-03-31 05:37] LABS: Bilirubin, Total 0.4 mg/dL (0.2-1.0); Total Protein 6.8 g/dL (6.4-8.2)
[2018-03-31] MEDS: METHOCARBAMOL 500 MG TAB PO SCH ×3 (06:04→22:03)
[2018-03-31] MEDS: PREGABALIN CAPSULE 75 MG CAP PO SCH ×3 (06:04→22:02)
[2018-03-31] MEDS: SODIUM CHLORIDE 0.9% 1,000 ML IV SCH (06:05)
[2018-03-31 08:00] VITALS: BP 144/77
--- NOTE | 2018-03-31 09:30 | NUR ---
PICC line placement Patient educated on need for PICC line placement. All risks and benefits explained and all questions and concerns addressed prior to procedure. Noted past medical history and allergies with no contraindications. INR and Plt counts within acceptable range. 4 fr PICC line inserted via Right Brachila vein using [employer] US and Tip Location System. Sterile technique with maximum barrier precautions utilized. Blood return obtained from single lumen and each flushed easily with NS using proper technique. PICC secured with Stat-lock; biodisc and occlusive dressing applied. Stat portable chest x-ray obtained for PICC tip placement. *Baseline Arm Circumference 28 cm. *Internal Length 46 cm. *External Length 0 cm. PICC lot #[id number].
[2018-03-31] MEDS: cefTRIAXone 1GM/50ML D5W 50 ML IV SCH (09:35)
[2018-03-31] MEDS: LACTULOSE 20Gm/30ML SOLN PO SCH ×3 (09:36→22:00)
[2018-03-31] MEDS: PANTOPRAZOLE 40 MG TAB PO SCH (09:36)
[2018-03-31] MEDS: FAMOTIDINE 20 MG TAB PO SCH ×2 (09:36→22:02)
[2018-03-31] MEDS: DIAZEPAM 5 MG TAB PO SCH ×2 (09:37→22:03)
[2018-03-31] MEDS ORDERED: LIDOCAINE 1% (LOCAL ANESTH.) PF 5ml SDV ID ONE (09:45)
[2018-03-31] MEDS: OXYCODONE W/ ACETAMINOPHEN 5/325MG TABLET PO PRN ×2 (09:59→19:04)
[2018-03-31] MEDS: SODIUM CHLOR 0.9% PF (SALINE LOCK) 10ML VIAL/SYR IV SCH ×2 (10:01→22:01)
--- NOTE | 2018-03-31 10:46 | NUR ---
Okay to use PICC line X-ray completed. Primary RN notified.
[2018-03-31] MEDS: VANCOMYCIN 1GM/250ML 250 ML IV SCH ×2 (11:26→22:00)
[2018-03-31 12:00] VITALS: BP 123/67
--- NOTE | 2018-03-31 14:26 | NUR ---
I faxed home IV ATB order to [facility] and [facility].
--- NOTE | 2018-03-31 14:35 | NUR ---
CONFIGURATION MANAGEMENT ANALYST PER PHYSICIAN PATIENT TO DISCHARGE WITH PICC IN PLACE FOR HOME ANTIBIOTICS ROCEPHIN Q DAY FOR 2 WEEKS. RN AT LUNCH UNSURE OF DOSE WILL CALL PHYSICIAN FOR CLARIFICATION.
[2018-03-31 17:00] VITALS: BP 90/56
[2018-03-31] MEDS: ROPINIROLE 1 MG TABLET PO SCH ×2 (18:00→18:51)
--- NOTE | 2018-03-31 19:00 | NUR ---
ASSUMED PATIENT CARE- NOC SHIFT PATIENT IS ALERT AND ORIENTED X4, ANSWERS IN COMPLETE SENTENCES AND MAKES APPROPRIATE EYE CONTACT. NO S/SX OF DISTRESS OR SOB. PATIENT REPORTS GENERALIZED PAIN OF 7/10. PATIENT IS IN BED, BED IS LOCKED IN LOWEST POSITION. BED RAILS UP X2 AND HEAD OF BED IS UP >30 DEGREES FOR SAFETY PRECAUTIONS. BEDSIDE TABLE WITHIN REACH, CALL LIGHT WITHIN REACH. DISCUSSED POC WITH PATIENT AND INSTRUCTED PATIENT TO CALL PRN; PATIENT VERBALIZED UNDERSTANDING. WILL CONTINUE TO MONITOR Q1H AND PRN.
[2018-03-31 22:00] VITALS: BP 104/58
[2018-03-31] MEDS: ZOLPIDEM TARTRATE 5 MG TAB PO SCH (22:02)
[2018-04-01] MEDS: HYDROmorphone HCL 2 MG/ML VL IV PRN ×5 (03:10→21:17)
[2018-04-01 04:48] VITALS: BP 87/56
[2018-04-01] MEDS: METHOCARBAMOL 500 MG TAB PO SCH ×3 (06:27→22:16)
[2018-04-01] MEDS: PREGABALIN CAPSULE 75 MG CAP PO SCH ×3 (06:27→22:15)
--- NOTE | 2018-04-01 07:30 | NUR ---
Opening Shift Note Assumed care of patient, awake and alert. No S/S of distress/SOB. Pain reported at 10/10. Pain management options discussed with patient. Instructed on POC and to call for assist PRN, will continue to monitor for changes Q1hr and PRN.
[2018-04-01 08:00] VITALS: BP 113/72
[2018-04-01 08:39] VITALS: BP 113/72
[2018-04-01] MEDS: LACTULOSE 20Gm/30ML SOLN PO SCH ×2 (10:00→22:00)
--- NOTE | 2018-04-01 10:00 | NUR ---
NEW ADDRESS FOR PATIENT TO BE DISCHARGED TO. PATIENT INFORMED ME THAT HE CANNOT GO BACK TO PREVIOUS LIVING ARRANGEMENTS. HE TOLD ME THAT HE WILL BE LIVING WITH HIS MOTHER IN [place] AFTER BEING DISCHARGED FROM HERE. ADDRESS - [address]. [facility]
[2018-04-01] MEDS: cefTRIAXone 1GM/50ML D5W 50 ML IV SCH (10:09)
[2018-04-01] MEDS: SODIUM CHLOR 0.9% PF (SALINE LOCK) 10ML VIAL/SYR IV SCH ×2 (10:09→22:17)
[2018-04-01] MEDS: FAMOTIDINE 20 MG TAB PO SCH ×2 (10:10→22:15)
[2018-04-01] MEDS: DIAZEPAM 5 MG TAB PO SCH ×2 (10:10→22:16)
[2018-04-01] MEDS: PANTOPRAZOLE 40 MG TAB PO SCH (10:10)
--- NOTE | 2018-04-01 11:00 | NUR ---
spoke with the social insurance analyst katherine winchester. obtained the number for the company providing the antibiotics outpatient.
[2018-04-01] MEDS: VANCOMYCIN 750 MG in D5W 5% 250 ML IV SCH ×2 (11:15→21:17)
[2018-04-01] MEDS: OXYCODONE W/ ACETAMINOPHEN 5/325MG TABLET PO PRN ×2 (13:36→22:16)
--- NOTE | 2018-04-01 13:57 | NUR ---
Message left with Dimas of [facility]. awaiting a call back.
--- NOTE | 2018-04-01 14:33 | NUR ---
Spoke with Dimas. i informed him that the patient had changed where he was living and i gave him the new address. He informed me that the patient was all set up to have the antibiotics delivered. Will notify Dr. Light of the progress.
--- NOTE | 2018-04-01 15:02 | NUR ---
RACHEL FROM [facility] CALLED ME BACK AND INFORMED ME THAT IN FACT THE PATIENT HAD NOT BEEN SET UP THROUGH THEM BECAUSE OF INSURANCE REASONS. I WILL NOTIFY YONY SUNG AND DR. HANLEY.
--- NOTE | 2018-04-01 15:13 | NUR ---
SPOKE WITH YONY SUNG. SHE GAVE ME THE INFORMATION NEEDED TO GET THE PATIENT SET UP ON HOME HEALTH AND A PROVIDER FOR THE ANTIBIOTICS. I WILL FAX OVER THE PAPERS TO THE NUMBER PROVIDED WHEN I GET A CHANCE.
[2018-04-01 15:35] VITALS: BP 100/53
--- NOTE | 2018-04-01 16:13 | NUR ---
SPOKE WITH DR. HANLEY ON THE PHONE. I INFORMED HIM OF THE CIRCUMSTANCES WITH HIS PATIENT AND HE ACKNOWLEDGED THAT WE HAVE TO GET THE PATIENT SET UP WITH HOME IV ANTIBIOTICS BEFORE THE PATIENT CAN GO HOME. NO NEW ORDERS OBTAINED.
[2018-04-01 17:00] VITALS: BP 140/72
--- NOTE | 2018-04-01 17:50 | NUR ---
PAPERWORK FAXED TO [facility], FACESHEET, ORDER AND MEDLIST FAXED TO [facility] - [phone]
--- NOTE | 2018-04-01 17:58 | NUR ---
PAPERWORK FAXED TO [email or web address] [facility], FACESHEET, ORDER FAXED TO [email or web address] - [phone]
[2018-04-01] MEDS: ROPINIROLE 1 MG TABLET PO SCH (18:00)
--- NOTE | 2018-04-01 18:30 | NUR ---
[facility] CALLED ME AND THEY INFORMED ME THAT THE DOCTOR NEEDS TO CLARIFY HOW OFTEN THE PATIENT NEEDS THE ANTIBIOTICS. THEY NEED THE FREQUENCY TO DECIDE WHETHER OR NOT THE PATIENT CAN BE ACCEPTED TO [facility]. WILL INFORM NOC NURSE SO THAT SHE CAN PASS IT ON TO DAY SHIFT NURSE TOMORROW 04/02.
[2018-04-01 22:10] VITALS: BP 126/83
[2018-04-01] MEDS: ZOLPIDEM TARTRATE 5 MG TAB PO SCH (22:16)
[2018-04-02] MEDS: HYDROmorphone HCL 2 MG/ML VL IV PRN ×5 (01:03→19:50)
[2018-04-02 05:00] VITALS: BP 111/60
[2018-04-02 05:16] LABS: Basophils # (auto) 0.1 uL; Eosinophils # (auto) 0.3 uL; Hematocrit 35.9 % (41.0-53.0); Lymphocytes # (auto) 3.6 uL; Mean Corpuscular Hgb Conc. 33.5 g/dL (32.0-36.0)
[2018-04-02 05:18] LABS: Basophils % (auto) 1.1 % (0.0-2.0); Eosinophils % (auto) 3.6 % (0.0-7.0); Lymphocytes % (auto) 43.3 % (10.0-50.0); Mean Corpuscular Hemoglobin 30.4 pg (28.0-32.0); Mean Corpuscular Volume 90.6 fL (80.0-100.0); Monocytes % (auto) 12.2 % (0.0-12.0); Neutrophils # (auto) 3.3 uL; Neutrophils % (auto) 39.8 % (37.0-80.0); Nucleated Red Blood Cells % 0.2 %; Platelet Count (auto) 596 10^3/uL (140-450); Red Blood Cells 3.96 10^6/uL (4.5-5.90); Red Cell Distribution Width 14.5 % (11.8-14.3); White Blood Cell 8.3 10^3/uL (4.4-10.8)
[2018-04-02] MEDS: PREGABALIN CAPSULE 75 MG CAP PO SCH ×3 (06:02→22:08)
[2018-04-02] MEDS: METHOCARBAMOL 500 MG TAB PO SCH ×3 (06:02→22:09)
[2018-04-02 06:03] LABS: Albumin 2.9 g/dL (3.4-5.0); BUN/Creatinine Ratio 32.1; Bilirubin, Total 0.3 mg/dL (0.2-1.0); Calcium 8.5 mg/dL (8.5-10.1); Potassium 3.9 mmol/L (3.5-5.1); Total Protein 7.1 g/dL (6.4-8.2)
[2018-04-02] MEDS: VANCOMYCIN 750 MG in D5W 5% 250 ML IV SCH ×2 (08:33→22:09)
[2018-04-02] MEDS: OXYCODONE W/ ACETAMINOPHEN 5/325MG TABLET PO PRN ×3 (08:34→22:08)
[2018-04-02] MEDS: DIAZEPAM 5 MG TAB PO SCH ×2 (08:34→22:08)
[2018-04-02] MEDS: FAMOTIDINE 20 MG TAB PO SCH ×2 (08:34→22:08)
[2018-04-02] MEDS: LACTULOSE 20Gm/30ML SOLN PO SCH ×2 (08:35→22:00)
[2018-04-02] MEDS: PANTOPRAZOLE 40 MG TAB PO SCH (08:35)
[2018-04-02] MEDS: SODIUM CHLOR 0.9% PF (SALINE LOCK) 10ML VIAL/SYR IV SCH ×2 (08:35→22:09)
[2018-04-02 09:00] VITALS: BP 109/59
[2018-04-02] MEDS: cefTRIAXone 1GM/50ML D5W 50 ML IV SCH (10:37)
--- NOTE | 2018-04-02 11:40 | NUR ---
ROUNDSUKHJINDER Light rounding on patient, orders for home antibiotics clarified and updated. call center representative social media marketing specialist Edilia paged and made aware. Instructed to fax information to [facility]. Will fax information and f/u with social media marketing specialist. Patient cleared for discharge once arrangements are made.
[2018-04-02 13:00] VITALS: BP 99/46
--- NOTE | 2018-04-02 13:59 | NUR ---
AMA Patient removed IV to right FA, catheter intact lying on bedside table, no bleeding at site. Patient verbalizing he wants to leave. Educated patient on need to confirm HH arrangements for IV antibiotics and HH. Placing Judge arrived at bedside and educated patient also. Encouraged patient to stay. Patient agrees to wait at this time. Patient asked for IV Dilaudid, informed patient medications not due at this time, scheduled pain medications administered.
--- NOTE | 2018-04-02 14:07 | NUR ---
[employer] Phone call placed to [facility]. Was place on hold and then disconnected.
--- NOTE | 2018-04-02 14:20 | NUR ---
[facility] PHONE CALL PLACED TO [facility] AT [phone] IN ATTEMPT TO FOLLOW UP WITH [facility]FUS[facility]. PAGE PLACED TO DATABASE PROGRAMMER ANALYST STAFF "ROBERTO CARLOS".
--- NOTE | 2018-04-02 14:23 | NUR ---
[facility] CALLED AGAIN AT [phone]. SPOKE WITH IONA, SHE WOULD LIKE TO SET APPOINTMENT FOR TOMORROW AT 10:30. AWAITING TO HEAR FROM [facility] BEFORE DISCHARGE.
--- NOTE | 2018-04-02 16:17 | NUR ---
[facility] Phone call again placed to [facility]. Spoke with Jerson Snyder stating arrangements can not be made at this time stating "we have been swamped today". Jerson states he called our case resource manager in the morning and left message. Informed Jerson that case management is social service liaison during weekends. Jerson confirmed he did receive fax in morning sent by RN with orders and information. RN provided direct extension on the fax face sheet sent in the morning. web graphic designer social work instructor Edilia paged and returned call, updated on patients status. NOTE: Jerson Snyder can be reached on direct line at [phone]
[2018-04-02 17:00] VITALS: BP 109/55
[2018-04-02] MEDS: ROPINIROLE 1 MG TABLET PO SCH (18:00)
[2018-04-02 22:00] VITALS: BP 92/72
[2018-04-02] MEDS: ZOLPIDEM TARTRATE 5 MG TAB PO SCH (22:09)
[2018-04-03] MEDS: HYDROmorphone HCL 2 MG/ML VL IV PRN ×2 (01:20→05:27)
[2018-04-03 04:30] VITALS: BP 95/56
[2018-04-03] MEDS: PREGABALIN CAPSULE 75 MG CAP PO SCH (05:27)
[2018-04-03] MEDS: METHOCARBAMOL 500 MG TAB PO SCH (05:27)
[2018-04-03] MEDS: OXYCODONE W/ ACETAMINOPHEN 5/325MG TABLET PO PRN (06:52)
--- NOTE | 2018-04-03 07:20 | NUR ---
Opening Shift Note Assumed care of patient, awake and alert. No S/S of distress/SOB or pain. Patient wanted to leave AMA. Explained to patient the risk of leaving AMA as he cannot get his home IV antibiotics, patient is still decided to go home.
--- NOTE | 2018-04-03 07:30 | NUR ---
Informed charge nurse, Veronica. Veronica states she will talk to the patient.
--- NOTE | 2018-04-03 07:40 | NUR ---
Spoke to Veronica. Veronica states that patient had a confirmation from [facility] and just pending [facility] to deliver IV antibiotic. Will inform Dr. Light.
--- NOTE | 2018-04-03 08:04 | NUR ---
Contacted Dr. Light. Left a message re: patient is decided to leave AMA, patient states that he received a confirmation from [facility] and patient updated his new address, and patient needs meneses to go home with. Waiting for call back.
--- NOTE | 2018-04-03 08:15 | NUR ---
I called [facility] [phone] to obtain delivery time for IV ATB, they are not in yet, will try again shortly.
[2018-04-03 08:28] VITALS: BP 103/51
--- NOTE | 2018-04-03 08:49 | NUR ---
Received call from Dr. Light. Dr. Light states the that he is coming in a hour and to let the patient wait for an hour otherwise if the patient wants to go he has to understand that he is not getting home antibiotics.
--- NOTE | 2018-04-03 08:51 | NUR ---
Informed patient that Doctor Kuldeep wants him to wait as he is coming in an hour.
--- NOTE | 2018-04-03 09:20 | NUR ---
I was informed that patient was leaving. Saw family wheeling patient going downstairs. Spoke to family and informed them that Doctor Kuldeep is requesting the patient to wait for him before they go otherwise patient will not get home IV antibiotics. Patient's family states they will wait for the doctor and wheeled the patient back to his room.
--- NOTE | 2018-04-03 09:27 | NUR ---
Paged Lynn as requested by Dr. Light.
--- NOTE | 2018-04-03 09:30 | NUR ---
Dr. Light at bedside.
--- NOTE | 2018-04-03 09:31 | NUR ---
I placed a second call to [facility] [phone] (I spoke with tech who answered phone-I explained that patient was wanting to sign himself out so I was needing to know JULIANNE if the arrangements are finalized and when the delivery is going to be)-left message explaining the urgency of the situation-awaiting return call.
--- NOTE | 2018-04-03 09:35 | NUR ---
I spoke with nurse Gomez to update her on the status of the home IV ATB.
--- NOTE | 2018-04-03 09:40 | NUR ---
Informed Dr. Light that I spoke to Lynn, medical case manager and that Lynn states that she can arrange the IV antibiotic today. Dr. Light states " Patient can go."
[2018-04-03] MEDS ORDERED: VANCOMYCIN 1GM/250ML 250 ML IV SCH (10:00)
--- NOTE | 2018-04-03 10:11 | NUR ---
Patient left with a discharge order. Patient not willing to wait for complete arrangement of home health and home antibiotics. Patient states [facility] called him and gave him the confirmation for their service. Patient informed that registered nurse hh case manager will continue to set up the home antibiotic today. Patient left with PICC line for home antibiotic and meneses. Patient taken to vehicle via wheelchair with all personal belongings, accompanied by family member. No distress noted at time of departure. Addendum: 04/03/18 at 1109 by BERONICA MOORE RN Patient left without discharge instructions.
--- NOTE | 2018-04-03 10:28 | NUR ---
I called [facility] [phone] and left message for Aleyda asking for delivery time for home IV ATB, awaiting return call.
--- NOTE | 2018-04-03 11:02 | NUR ---
I spoke with Aleyda at [facility] [phone]-she told me that if patient left AMA they have to have all new orders-she is going to contact patient's PCP Dr. Montelongo to see if he will give home IV ATB order for this patient. I called patient's nurse Jason, she said per Dr. Light as long as IV ATB are arranged today, patient can go under a discharge home order-she will give me a call back.
--- NOTE | 2018-04-04 12:20 | NUR ---
I faxed discharge order from 04/03 to [facility] letting them know that patient had actual discharge home order and did NOT leave AMA.
--- NOTE | 2018-04-05 11:30 | NUR ---
I spoke with Kathryn at [facility] who let me know that they dc's this order due to the fact that patient left AMA, they did try to get a hold of patient's PCP Dr. Montelongo who stated that they haven't seen patient since 2014, per Kathryn at [facility] they repeatedly tried to get a hold of patient by phone with out success. I called [facility] to let them know.
== END 2018-04-03 10:11 | disposition left against medical advice (07) | DRG 720 ==
LOC: EDBD 06:29 → ER 06:29 → TELE 18:19 → TELE-CENTR 20:50 → CENTRAL 23:58
PROVIDERS: ADMIT Internal Medicine; ATTEND Internal Medicine
PROC: 0TCB8ZZ Extirpation of Matter from Bladder, Via Natural or Artificial Opening Endoscopic (ICD-10-PCS; principal; 2018-03-30 15:56)
PROC: 02HV33Z Insertion of Infusion Device into Superior Vena Cava, Percutaneous Approach (ICD-10-PCS; 2018-03-31)
DX: A41.9 Sepsis, unspecified organism (principal); T19.1XXA Foreign body in bladder, initial encounter; E44.0 Moderate protein-calorie malnutrition; G82.20 Paraplegia, unspecified; T83.011A Breakdown (mechanical) of indwelling urethral catheter, initial encounter; K80.20 Calculus of gallbladder without cholecystitis without obstruction; E87.6 Hypokalemia; N39.0 Urinary tract infection, site not specified; K21.9 Gastro-esophageal reflux disease without esophagitis; N35.919 Unspecified urethral stricture, male, unspecified site; R31.9 Hematuria, unspecified; Z53.21 Procedure and treatment not carried out due to patient leaving prior to being seen by health care provider; W23.1XXA Caught, crushed, jammed, or pinched between stationary objects, initial encounter; D72.829 Elevated white blood cell count, unspecified; B96.20 Unspecified Escherichia coli [E. coli] as the cause of diseases classified elsewhere; Z16.23 Resistance to quinolones and fluoroquinolones; Z23 Encounter for immunization; Z82.3 Family history of stroke; Z82.49 Family history of ischemic heart disease and other diseases of the circulatory system; Z83.3 Family history of diabetes mellitus; Z87.442 Personal history of urinary calculi; Z90.81 Acquired absence of spleen; Z88.6 Allergy status to analgesic agent; Z88.8 Allergy status to other drugs, medicaments and biological substances; Y93.89 Activity, other specified; Y92.89 Other specified places as the place of occurrence of the external cause; Y99.8 Other external cause status; Z68.1 Body mass index [BMI] 19.9 or less, adult
CPT/HCPCS: 36415; 36569; 51702; 71045; 74176; 76856; 80048; 80053; 80202; 81001; 83690; 83735; 85007; 85025; 85027; 85610; 85730; 87081; 87086; 87088; 87186; 93971; 96374; 96375; 96376; G0378; J0690; J0696; J2250; J2704; J7060